=== PATIENT | female | born 1960 | race Caucasian/White ===

== ENCOUNTER → 2016-06-15 07:59 | Outpatient (CLI) | payer BC ==
[2016-06-15 08:47] LABS: BASOPHILS 0.4 % (0.0-2.0); EOSINOPHILS 1.9 % (0-7); HEMOGLOBIN 14.6 g/dL (12-16); IMMATURE GRANULOCYTES 0.3 % (0-5); LYMPHOCYTES 17.6 % (15-50); MCHC 31.1 g/dL (31.0-37.0); MEAN PLATELET VOLUME 9.9 fL (7.4-10.4); MONOCYTES 7.8 % (2-11); PLATELET COUNT 263 10x3/uL (130-400); RBC 5.22 10x6/uL (4.00-5.40); RDW 13.5 % (11.5-14.5); WBC 7.5 10x3/uL (4.8-10.8)
[2016-06-15 08:48] LABS: HEMOGLOBIN A1C 6.6 % (4.8-6.0)
[2016-06-15 08:55] LABS: ALBUMIN 3.7 g/dL (3.4-5.0); BILIRUBIN - TOTAL 0.6 mg/dL (0.2-1.3); CALCIUM 8.7 mg/dL (8.5-10.1); CARBON DIOXIDE 32.7 mmol/L (21.0-32.0); CREATININE - SERUM 0.9 mg/dL (0.6-1.3); POTASSIUM - SERUM 4.7 mmol/L (3.5-5.1); PROTEIN - SERUM 7.3 g/dL (6.4-8.2); THYROID STIMULATING HORMONE 1.88 uIU/mL (0.36-3.74)
== END | disposition home or self-care (01) ==
LOC: D.LAB 07:59
PROVIDERS: Family Medicine
DX: Z00.00 Encounter for general adult medical examination without abnormal findings (principal); E03.9 Hypothyroidism, unspecified; I10 Essential (primary) hypertension; M79.1 Myalgia

== ENCOUNTER → 2016-12-12 19:20 | Outpatient (CLI) | payer BC ==
[2016-12-12 20:01] LABS: HEMOGLOBIN A1C 5.9 % (4.8-6.0)
== END | disposition home or self-care (01) ==
LOC: D.LABREF 19:20
PROVIDERS: Family Medicine
DX: E11.9 Type 2 diabetes mellitus without complications (principal)

== ENCOUNTER → 2017-06-20 07:56 | Outpatient (CLI) | payer MEDICAID ==
[2017-06-20 08:16] LABS: BASOPHILS 0.3 % (0-2); EOSINOPHILS 2.3 % (0-7); HEMATOCRIT 47.4 % (36.0-48.0); HEMOGLOBIN 14.9 g/dL (12-16); IMMATURE GRANULOCYTES 0.2 % (0-5); LYMPHOCYTES 21.7 % (15-50); MCH 28.1 pg (26.0-34.0); MCHC 31.4 g/dL (31.0-37.0); MCV 89.4 fL (80.0-100.0); MEAN PLATELET VOLUME 9.6 fL (7.4-10.4); MONOCYTES 5.9 % (2-11); NEUTROPHILS 69.6 % (40-80); PLATELET COUNT 277 10x3/uL (130-400); RDW 13.2 % (11.5-14.5); WBC 6.2 10x3/uL (4.8-10.8)
[2017-06-20 08:26] LABS: HEMOGLOBIN A1C 5.9 % (4.8-6.0)
[2017-06-20 08:39] LABS: ALBUMIN 3.9 g/dL (3.4-5.0); BILIRUBIN - TOTAL 0.51 mg/dL (0.2-1.3); CALCIUM 9.9 mg/dL (8.5-10.1); CARBON DIOXIDE 32.1 mmol/L (21.0-32.0); CREATININE - SERUM 0.9 mg/dL (0.6-1.3); POTASSIUM - SERUM 4.1 mmol/L (3.5-5.1); PROTEIN - SERUM 7.5 g/dL (6.4-8.2); THYROID STIMULATING HORMONE 2.1 uIU/mL (0.36-3.74)
[2017-06-21 08:16] LABS: VITAMIN D 25 HYDROXY 35.2 ng/mL (30.0-100.0)
== END | disposition home or self-care (01) ==
LOC: D.LAB 07:56
PROVIDERS: Family Medicine
DX: Z00.00 Encounter for general adult medical examination without abnormal findings (principal); E11.9 Type 2 diabetes mellitus without complications; I10 Essential (primary) hypertension; M79.1 Myalgia; E03.9 Hypothyroidism, unspecified

== ENCOUNTER → 2017-11-26 08:20 | Outpatient (CLI) | payer MEDICAID ==
[2017-11-26 09:04] LABS: ANION GAP 5.6 mmol/L (8-16); CALCIUM 9.6 mg/dL (8.5-10.1); CARBON DIOXIDE 34.1 mmol/L (21.0-32.0); CREATININE - SERUM 0.9 mg/dL (0.6-1.3); POTASSIUM - SERUM 4.7 mmol/L (3.5-5.1); THYROID STIMULATING HORMONE 0.94 uIU/mL (0.36-3.74)
== END | disposition home or self-care (01) ==
LOC: D.LAB 08:20
PROVIDERS: Family Medicine
DX: E11.9 Type 2 diabetes mellitus without complications (principal); E03.9 Hypothyroidism, unspecified; I10 Essential (primary) hypertension

== ENCOUNTER 2018-02-25 21:12 | Emergency (ER) | payer MEDICAID ==
[~2018-02-25] VITALS: Ht 175.3 cm; Wt 125.9 kg
[2018-02-25 21:18] VITALS: Ht 175.3 cm; Wt 125.9 kg
[2018-02-25] MEDS ORDERED: TIROSINT13 MCG (21:20)
[2018-02-25] MEDS ORDERED: GLUCOPHAGE500 MG PO (21:21)
[2018-02-25] MEDS ORDERED: ULTRAM50 MG PO (21:21)
[2018-02-25] MEDS ORDERED: CYCLOBENZAPRINE10 MG PO (21:22)
[2018-02-25 22:25] LABS: BASOPHILS 0.2 % (0-2); HEMATOCRIT 45.6 % (36.0-48.0); IMMATURE GRANULOCYTES 0.2 % (0-5); LYMPHOCYTES 10.7 % (15-50); MCH 28.5 pg (26.0-34.0); MCHC 32.9 g/dL (31.0-37.0); MCV 86.5 fL (80.0-100.0); MEAN PLATELET VOLUME 9.9 fL (7.4-10.4); MONOCYTES 5.7 % (2-11); NEUTROPHILS 82.2 % (40-80); PLATELET COUNT 309 10x3/uL (130-400); RBC 5.27 10x6/uL (4.00-5.40); RDW 13.6 % (11.5-14.5); WBC 12.6 10x3/uL (4.8-10.8)
[2018-02-25 22:43] LABS: ALBUMIN 3.9 g/dL (3.4-5.0); ALKALINE PHOSPHATASE 58 U/L (46-116); ALT (SGPT) 24 U/L (10-68); BILIRUBIN - TOTAL 0.35 mg/dL (0.2-1.3); CALC OSMOLALITY 273 mosm/kg (275-300); CALCIUM 8.9 mg/dL (8.5-10.1); CHLORIDE - SERUM 99 mmol/L (98-107); CREATININE - SERUM 0.8 mg/dL (0.6-1.3); GLUCOSE 119 mg/dL (74-106); POTASSIUM - SERUM 3.9 mmol/L (3.5-5.1); PROTEIN - SERUM 7.9 g/dL (6.4-8.2); SODIUM 135 mmol/L (136-145); UREA NITROGEN 22 mg/dL (7-18); eGFR NON AFRICAN AMERICAN 77 mL/min (90-120)
[2018-02-25 23:19] VITALS: BP 128/83
[2018-02-25] MEDS ORDERED: FLAGYL500 MG PO (23:46)
[2018-02-25] MEDS ORDERED: CIPRO500 MG PO (23:46)
== END 2018-02-26 00:09 | disposition home or self-care (01) ==
LOC: D.ER 21:12
PROVIDERS: Family Medicine
DX: K52.9 Noninfective gastroenteritis and colitis, unspecified (principal); R10.30 Lower abdominal pain, unspecified

== ENCOUNTER → 2018-02-28 08:09 | Outpatient (CLI) | payer MEDICAID ==
[2018-02-25 21:18] VITALS: BMI 41.0
[~2018-02-28 08:09] MED LIST: CIPRO500 MG PO; CYCLOBENZAPRINE10 MG PO; FLAGYL500 MG PO; GLUCOPHAGE500 MG PO; TIROSINT13 MCG; ULTRAM50 MG PO
[2018-02-28 08:31] LABS: ANION GAP 10.6 mmol/L (8-16); CALCIUM 9.2 mg/dL (8.5-10.1); CARBON DIOXIDE 29.4 mmol/L (21.0-32.0)
== END | disposition home or self-care (01) ==
LOC: D.LAB 08:09
PROVIDERS: Family Medicine
DX: Z00.00 Encounter for general adult medical examination without abnormal findings (principal); E11.9 Type 2 diabetes mellitus without complications

== ENCOUNTER → 2018-06-19 08:41 | Outpatient (CLI) | payer MEDICAID ==
[2018-02-25 21:18] VITALS: BMI 41.0
[2018-06-19 09:59] LABS: CHOL - HDL RATIO 3.4 ratio (2.3-4.1); LDL-HDL RATIO 1.7 ratio (1.5-3.5); THYROID STIMULATING HORMONE 1.28 uIU/mL (0.36-3.74)
== END | disposition home or self-care (01) ==
LOC: D.LAB 08:41
PROVIDERS: Family Medicine
DX: I10 Essential (primary) hypertension (principal); M79.18 Myalgia, other site; E11.9 Type 2 diabetes mellitus without complications

== ENCOUNTER → 2018-11-22 08:27 | Outpatient (CLI) | payer MEDICAID ==
[2018-02-25 21:18] VITALS: BMI 41.0
== END | disposition home or self-care (01) ==
LOC: D.LAB 08:27
PROVIDERS: ATTEND Family Medicine
DX: E03.9 Hypothyroidism, unspecified (principal); E11.9 Type 2 diabetes mellitus without complications

== ENCOUNTER 2019-04-24 11:14 | Observation (INO) | payer MEDICAID ==
[~2019-04-24] VITALS: Ht 175.3 cm; Wt 116.8 kg
[2019-04-24] MEDS ORDERED: CYMBALTA30 MG PO (11:27)
[2019-04-24 11:43] VITALS: BP 120/50
[2019-04-24 11:54] LABS: BASOPHILS 0.2 % (0-2); EOSINOPHILS 1.6 % (0-7); HEMATOCRIT 50.3 % (36.0-48.0); HEMOGLOBIN 16.1 g/dL (12-16); IMMATURE GRANULOCYTES 0.3 % (0-5); LYMPHOCYTES 17.9 % (15-50); MCH 28.3 pg (26.0-34.0); MCV 88.4 fL (80.0-100.0); MEAN PLATELET VOLUME 9.7 fL (7.4-10.4); MONOCYTES 9.1 % (2-11); NEUTROPHILS 70.9 % (40-80); PLATELET COUNT 348 10x3/uL (130-400); RBC 5.69 10x6/uL (4.00-5.40); RDW 13.3 % (11.5-14.5); WBC 8.7 10x3/uL (4.8-10.8)
[2019-04-24 12:04] LABS: APTT 32.2 SECONDS (22.8-39.4); INR 0.99 (0.85-1.17); PROTIME 12.6 SECONDS (11.6-15.0)
[2019-04-24 12:09] LABS: CALC OSMOLALITY 281 mosm/kg (275-300); CALCIUM 9.9 mg/dL (8.5-10.1); CARBON DIOXIDE 28.3 mmol/L (21.0-32.0); CHLORIDE - SERUM 102 mmol/L (98-107); CREATININE - SERUM 1.2 mg/dL (0.6-1.3); GLUCOSE 132 mg/dL (74-106); POTASSIUM - SERUM 4.3 mmol/L (3.5-5.1); SODIUM 139 mmol/L (136-145); UREA NITROGEN 19 mg/dL (7-18); eGFR NON AFRICAN AMERICAN 48 mL/min (90-120)
[2019-04-24 12:23] LABS: ALBUMIN 3.9 g/dL (3.4-5.0); ALKALINE PHOSPHATASE 62 U/L (46-116); ALT (SGPT) 25 U/L (10-68); BILIRUBIN - TOTAL 0.48 mg/dL (0.2-1.3); CKMB 0.9 U/L (0.0-3.6); CREATINE KINASE 47 UL (21-215); MAGNESIUM - SERUM 1.6 mg/dL (1.8-2.4); PROTEIN - SERUM 8.3 g/dL (6.4-8.2); TROPONIN-I < 0.017 ng/mL (0.000-0.060)
[2019-04-24 12:40] VITALS: BP 98/68
[2019-04-24 13:52] VITALS: BP 96/54
[2019-04-24 14:16] LABS: T4 THYROXINE 13.5 ug/dL (4.7-13.3); THYROID STIMULATING HORMONE 0.22 uIU/mL (0.36-3.74)
[2019-04-24 14:45] VITALS: BP 99/54
--- NOTE | 2019-04-24 16:33 | NUR ---
SPOKE WITH ABOUT PT'S MAGNESIUM LEVEL. HE ADVISED FOR 1 GM MAG SULFATE TO BE INFUSED OVER 4 HRS AFTER ARRIVING TO THE FLOOR.
--- NOTE | 2019-04-24 17:08 | NUR ---
RECIEVED FROM ER. AWAKE AND ALERT. DENIES ANY NEEDS. TELEMERTY SHOWS AFIB 109. FAMILY AT BEDSIDE
[2019-04-24 17:17] VITALS: BP 120/50; Ht 175.3 cm; Wt 116.8 kg
--- NOTE | 2019-04-24 19:54 | NUR ---
RECIEVED STANDING AT SINK AND BRUSHING HER TEETH. ALERT AND ORIENTED X4. UP AD JEFFERY. TELEMETRY IN PLACE. IV TO LEFT AC SL. DENIES ANY NEEDS AT THIS TIME.
[2019-04-24 20:00] VITALS: BP 112/61
[2019-04-25] VITALS: BP 104/69
--- NOTE | 2019-04-25 02:05 | NUR ---
HR WENT UP TO 140-150 WHEN ENTERED THE ROOM SHE WAS AMBULATING AROUND THE ROOM. ASYMPTOMATIC. ASKED HER TO REST AND TAKE IT EASY D/T HIGH PULSE RATE. SHE VERBALLY AGREED.
[2019-04-25 04:00] VITALS: BP 125/65
--- NOTE | 2019-04-25 07:31 | NUR ---
ALERT AND ORIENTED. LEFT AC SL.TELEMERTY SHOWS SR 85. UP AB JEFFERY. SR UP WITH CALL LIGHT IN REACH. WILL MONITOR.
[2019-04-25 08:00] VITALS: BP 113/78
[2019-04-25] MEDS ORDERED: CARDIZEM CD240 MG PO (09:08)
[2019-04-25] MEDS ORDERED: SYNTHROID150 MCG PO (09:09)
--- NOTE | 2019-04-25 11:00 | NUR ---
PT DISCHARGED. IV DCD WITH TIP INTACT. INSTRUCTIONS GIVEN TO PT. TO PRIVATE CAR PER WHEELCHAIR
--- NOTE | 2019-04-29 08:48 | DS ---
PATIENT:TAMIKA MELVIN :56 MEDICAL RECORD: [id number] DISCHARGE SUMMARY ADMISSION DATE: 04/24/19 DISCHARGE DATE: 04/25/19 DATE OF ADMISSION: 04/24/2019 DATE OF DISCHARGE: 04/25/2019 PROBLEM LIST: 1. Atrial fibrillation with rapid ventricular response. 2. Hypothyroidism, now hyperthyroid. 3. Diabetes mellitus. BRIEF HISTORY AND HOSPITAL COURSE: Admitted with atrial fibrillation with RVR, rate was controlled with Cardizem, normal LV function on echo, elevated T4, decreased TSH, thyroid dose was decreased probably, felt not to be go a candidate for cardioversion at this point due to hyperthyroidism, pharmacologic. We will continue rate control, NAYAN score, would not start NOAC at this point. She will be back at the office in 2-3 weeks. Suspect at some point, should be able to taper off the Cardizem, probably benefit given her symptomatology and risk factors from a cardiovascular stress testing at some point. TRANSINT:[id number] Voice Confirmation ID: [id number] DOCUMENT ID: [id number] ARMANDO MOBLEY MD at 0848 CC: [id number] DICTATION DATE: 04/25/19 0855 SHINGLE SAWYER: 04/25/19 0935 DIS IN 04/25/19 [facility] [address] [place] [address]
--- NOTE | 2019-04-29 08:48 | EC ---
PATIENT:TAMIKA MELVIN DATE OF SERVICE: 04/24/19 SEX: F MEDICAL RECORD: [id number] DATE OF : 56 LOCATION:D. D.212 AGE OF PATIENT: 59 ADMISSION DATE: 04/24/19 REFERRING PHYSICIAN: INTERPRETING PHYSICIAN: ARMANDO MOBLEY MD ECHOCARDIOGRAM REPORT ECHO CHARGES 4 ECHO COMPLETE Date: 04/25/19 CLINICAL DIAGNOSIS: A-FLUTTER/TACHYCARDIA ECHOCARDIOGRAPHIC MEASUREMENTS (adult normal given) AC root (d.<3.7cm) 3.3 cm LV Septum d (<1.2 cm> 1.3 cm Valve Excursion 1.4 cm LV Septum (systole) 2.1 cm Left Atria (s.<4.0cm> 3.3 cm LVPW d(<1.2cm) 1.2 cm RV (d.<2.3cm) 1.7 cm LVPW (sytole) 1.8 cm LV diastole(<5.6CM) 4.1 cm MV E-F(>70mm/sec) cm LV systole 2.0 cm LVOT Diameter 1.9 cm MV exc.(>10mm) cm Est.ejection fraction (50-75%) % DOPPLER: LVIT cm/sec A 74.0 cm/sec E 63.0 cm/sec LA cm/sec RVSP 17.0 mmHg LVOT 100 cm/sec AOP1/2T m/s Asc. Ao 129 cm/sec RVOT 61.0 cm/sec RA cm/sec PA 87.0 cm/sec AV Gradient Peak 6.7 mmHg AV Mean 3.7 mmHg AV Area 2.3 cm MV Gradient Peak 3.2 mmHg MV Mean 1.5 mmHg MV Area cm COMMENTS: Charge Account Identification Clerk: 1 JERICHO GUERREROOE Tech Intern: 3 Dr. Carlos TAPE# PACS Pericardial Effusion N DATE OF SERVICE: Adequate 2D, color flow imaging, spectral Doppler, and M-Mode Borderline LVH. LV internal dimension is normal. Wall motion is normal. EF is greater than or equal to 55%. Aortic valve is tricuspid. There is no evidence of stenosis by Doppler interrogation. Left atrium is normal at 3.3 cm. Mitral valve shows no prolapse. Trace MR. Right-sided chambers are grossly normal. Trace TR. ECHOCARDIOGRAM REPORT [id number] TAMIKA MELVIN TRANSINT:[id number] Voice Confirmation ID: [id number] DOCUMENT ID: [id number] ARMANDO MOBLEY MD at 0848 CC: [id number] DICTATION DATE: 04/26/19 1020 CHUCKING MACHINE OPERATOR: 04/26/19 1102 DIS IN 04/25/19 [facility] [address] [place] [id number]
== END 2019-04-25 11:03 | disposition home or self-care (01) ==
LOC: D.ER 11:14 → OBSVTIME 13:53 → D.M2 13:53
PROVIDERS: Emergency Medicine; ADMIT Internal Medicine Interventional Cardiology; ATTEND Internal Medicine Interventional Cardiology
DX: I48.92 Unspecified atrial flutter (principal); I10 Essential (primary) hypertension; F32.9 Major depressive disorder, single episode, unspecified; E11.9 Type 2 diabetes mellitus without complications; I48.91 Unspecified atrial fibrillation; E03.9 Hypothyroidism, unspecified; E05.90 Thyrotoxicosis, unspecified without thyrotoxic crisis or storm

== ENCOUNTER → 2019-06-17 07:58 | Outpatient (CLI) | payer MEDICAID ==
[2019-04-24 17:17] VITALS: BMI 38.0
[~2019-06-17 07:58] MED LIST changes: +CARDIZEM CD240 MG PO; +CYMBALTA30 MG PO; +SYNTHROID150 MCG PO
== END | disposition home or self-care (01) ==
LOC: D.HCCARDIO 07:58
PROVIDERS: ATTEND Internal Medicine Cardiovascular Disease
DX: I20.9 Angina pectoris, unspecified (principal)

== ENCOUNTER 2019-06-26 04:51 | Inpatient (IN) | payer MEDICAID ==
[2019-06-26] VITALS (8 sets, daily range): BP systolic 108–131; BP diastolic 70–82; Ht 175.3 cm; Wt 118.2 kg
[~2019-06-26] VITALS: Ht 175.3 cm; Wt 118.2 kg
--- NOTE | ~2019-06-26 | HEMODYNAMI ---
PATIENT:TAMIKA MELVIN MEDICAL RECORD: [id number] : 56 LOCATION:[facility] D.2118 [facility]# [id number] ADMISSION DATE: 06/26/19 Generatedon:06/26/201913:57 Patient name: TAMIKA MELVIN Patient #: [id number] SSN: [id number] : 1960 Date of study: 06/26/2019 Page: Of Hemodynamic Procedure Report Patient Data Patient Demographics Procedure consent was obtained First Name: TAMIKA Gender: Female Last Name: OLEGARIO : 1960 Middle Initial: LOUIS Age: 59 year(s) Patient #: [id number] Race: SSN: [id number] Additional ID: [id number] Contact details [address]: [address] [place] [address] State: [place] City: [place] Zip code: [address] Past Medical History Allergies Allergen Reaction Date Comments Reported Other allergy 06/26/2019 ERYTHROMYCIN,MORPHINE Admission Admission Data Admission Date: 06/26/2019 Admission Time: 9:12 Arrival Date: 06/26/2019 Arrival Time: 9:12 Admit Source: Other Insurance Payor: Private Room #: D.2118 health insurance [facility] #: [id number] Height (in.): 68.9 BSA: 2.31 (m2) Height (cm.): 175 BMI: 38.53 (kg/m2) Weight (lbs.): 260.15 Weight (kg.): 118 Lab Results Lab Result Date: 06/26/2019 Lab Result Time: 0:00 Biochemistry Name Units Result Min Max BUN mg/dl 21 --(----)-* 7 18 Creatinine mg/dl 1 --(--*-)-- 0.6 1.3 eGFR ml/min 60 *-(----)-- 90 120 NONAFRICAN CBC Name Units Result Min Max Hemoglobin g/dl 15.4 --(-*--)-- 13.5 17.5 Procedure Procedure Types Cath Procedure Diagnostic Procedure [facility] w/Coronaries Sedation Charges Moderate Sedation up to 15 minutes Procedure Description Procedure Date Procedure Date: 06/26/2019 Procedure Start Time: 13:43 Procedure End Time: 13:56 Procedure Staff Name Function Rod Ma MD Performing Physician Guillermina Moya RT Monitor Rosi Cortes RT Scrub Desire Alicea RN Nurse Indication Angina Procedure Data Cath Procedure Fluoroscopy Diagnostic fluoroscopy Total fluoroscopy Time: 2.9 time: 2.9 min min Diagnostic fluoroscopy Total fluoroscopy dose: 819 dose: 819 mGy mGy Contrast Material Contrast Material Type Amount (ml) Isovue 300 53 Entry Location Entry Primary Successful Side Size Upsize Upsize Entry Closure Aparicio ccessful Closure Location (Fr) 1 (Fr) 2 (Fr) Remarks Device Remarks Radial Right 6 Fr Mechanical artery Short Compression Estimated blood loss: 10 ml Diagnostic catheters Device Type Used For End Catheter Placement DIAGNOSTIC Pilot Point 110cm 5 Procedure Fr catheter ([id number]) DIAGNOSTIC Pigtail 5Fr Ventriculography catheter ([id number]) Procedure Complications No complications Procedure Medications Medication Administration Route Dosage 0.9% NaCl I.V. 100 ml/hr Oxygen etCO2 Nasal cannula 2 l/min Lidocaine 2% added to field 20 Heparin Flush Bag added to field 2 bags (1000units/500ml NS) Radial Cocktail added to field 1 syringe (Verapamil 2mg/Nitro 400mcg/Heparin 1500units) Versed I.V. 2 mg Fentanyl I.V. 50 mcg Versed I.V. 2 mg Fentanyl I.V. 50 mcg Hemodynamics Rest BSA: 2.31 (m2) HGB: 15.4 (g/dl) O2 Consumption: Estimated: 230.96 (ml/min) O2 Co nsumption indexed: Estimated:99.98 (ml/min/m) Heart Rate: 84 (bpm) Pressure Samples Time Site Value (mmHg) Purpose Heart Use Rate(bpm) 13:50 LV 94/18,17 Snapshot 70 Gradients Valve Time Site Site Mean SEP/DFP Peak To Heart Use 1 2 (mmHg) (sec/min) Peak Rate (mmHg) (bpm) Aortic 13:51 LV AO 85 Snapshots Pre Cath Intra NCS Post Cath Vital Signs Time Heart Resp SPO2 etCO2 NIBP (mmHg) Rhythm Pain Sedation Rate (ipm) (%) (mmHg) Status Level (bpm) 13:31:22 84 20 98 34.3 119/84(107) A-Flutter 0 (11) 10(A) , No pain 13:36:05 99 18 98 36.6 136/93(116) A-Flutter 0 (11) 10(A) , No pain 13:40:11 78 18 97 37.3 133/83(98) A-Flutter 0 (11) 10(A) , No pain 13:44:19 78 13 97 16 122/76(113) A-Flutter 0 (11) 10(A) , No pain 13:48:24 82 12 97 14.9 120/70(88) A-Flutter 0 (11) 9(A) , No pain 13:52:30 83 13 98 20.2 112/66(79) A-Flutter 0 (11) 10(A) , No pain Medications Time Medication Route Dose Verified Delivered Reason Notes E ffectiveness by by 13:33:00 0.9% NaCl I.V. 100 Rod Desire used for ml/hr Anil Nixon procedure MD TORRES 13:33:06 Oxygen etCO2 2 l/min Rod Desire used for Nasal Anil Nixon procedure cannula MD TORRES 13:33:11 Lidocaine 2% added 20ml Rod Rod for local to vial Anil Anil anesthetic field MD [place] 13:33:15 Heparin Flush added 2 bags Rod Rod used for Bag to Anil Anil procedure (1000units/500ml field MD [place] NS) 13:33:20 Radial Cocktail added 1 Rod Rod used for (Verapamil to syringe Anil Anil procedure 2mg/Nitro field MD [place] 400mcg/Heparin 1500units) 13:38:18 Versed I.V. 2 mg Rod Desire for Anil Nixon sedation MD TORRES 13:38:33 Fentanyl I.V. 50 mcg Rod Desire for Anil Nixon sedation MD T[facility]RES 13:44:43 Versed I.V. 2 mg Rod Desire for Anil Nixon sedation MD T[facility]RES 13:44:52 Fentanyl I.V. 50 mcg Rod Desire for Anil Nixon sedation MD TORREStoilet products molder Log Time Note 13:13:06 Informed consent obtained and on chart 13:14:08 Desire Alicea RN sent for patient. Start room use. 13:17:19 Admit Source: Other 13:17:27 Arrival Date: 06/26/2019 9:12:00 AM 13:17:53 Insurance Payor : Private health insurance 13:18:04 Patient Height : 68.9 inches 13:18:07 Patient Weight : 260.15 lbs 13:18:53 Lab Result : Hemoglobin 15.4 g/dl 13:18:53 Lab Result : Creatinine 1 mg/dl 13:18:53 Lab Result : BUN 21 mg/dl 13:18:53 Lab Result : eGFR NONAFRICAN 60 ml/min 13:22:50 Diagnostic Cath Status : Urgent 13:24:04 Indication : Angina 13:24:15 Time tracking: Regular hours (M-F 7:00 - 5:00) 13:24:19 Plan of Care:Hemodynamics will remain stable., Cardiac rhythm will remain stable., Comfort level will be maintained., Respiratory function will remain adequate., Patient/ family verbilizes understanding of procedure., Procedure tolerated without complication., Recovers from procedure without complications.. 13:24:24 Patient received from Med II to CCL 2 Alert and oriented. Tansferred to table in Supine position. 13:24:24 Warm blankets applied, and jorge hugger turned on for patient comfort. 13:24:25 Correct patient and procedure confirmed by team. 13:24:25 ECG and BP/O2 sat monitors applied to patient. 13:30:19 Vital chart was started 13:30:21 Baseline sample Acquired. 13:30:37 H&P Date Dictated: 06/26/2019 Within 30 days and on chart.. 13:30:39 Pre-procedure instructions explained to patient. 13:30:39 Pre-op teaching completed and patient verbalized understanding. 13:30:42 Family in patients room. 13:30:46 Patient NPO since Lunch. 13:31:04 Patient allergic to Other allergyERYTHROMYCIN,MORPHINE 13:31:06 Is the patient allergic to Iodine/contrast media? No. 13:31:08 Was the patient premedicated? No 13:31:10 Is patient on blood thinner?No 13:31:44 Patient diabetic? Yes. 13:32:01 If diabetic: On Metformin? Yes 13:32:04 If on Metformin: Last Dose? 06/26/2019 13:32:08 ----Pre-sedation anethsthesia assessment.---- 13:32:12 Previous problem with sedation/anesthesia? No ? 13:32:13 Snore? Yes 13:32:14 Sleep apnea? No 13:32:15 Deviated septum? No 13:32:17 Opens mouth fully? Yes 13:32:18 Sticks out tongue? Yes 13:32:20 Airway obstruction? No ? 13:32:23 Dentures? No ? 13:32:47 Lab results completed and on chart. 13:32:53 Stress Test: no; N/A ? 13:33:00 0.9% NaCl 100 ml/hr I.V. was administered by Desire Alicea RN; used for procedure; Verbal order read back and verified. 13:33:06 Oxygen 2 l/min etCO2 Nasal cannula was administered by Desire Alicea RN; used for procedure; Verbal order read back and verified. 13:33:11 Lidocaine 2% 20ml vial added to field was administered by Rod Ma MD; for local anesthetic; Verbal order read back and verified. 13:33:15 Heparin Flush Bag (1000units/500ml NS) 2 bags added to field was administered by Rod Ma MD; used for procedure; Verbal order read back and verified. 13:33:20 Radial Cocktail (Verapamil 2mg/Nitro 400mcg/Heparin 1500units) 1 syringe added to field was administered by Rod Ma MD; used for procedure; Verbal order read back and verified. 13:35:16 Risk of Mortality: .2 13:35:18 Risk of blood transfusion: .1 13:35:20 Risk of SARAH: .2 13:35:25 Right Radial & Right Groin area was prepped with chlora-prep and draped in sterile fashion 13:35:26 Alarms reviewed by R. N. 13:35:27 Sharps counted by scrub and verified by R.N. 13:35:34 Full Disclosure recording started 13:35:39 Procedure Status Urgent Heart Cath (IP). 13:35:46 Use device set Radial Dx or PCI 13:35:47 ACIST Syringe (91076) opened to sterile field. 13:35:48 Medline Cath Pack ([id number]) opened to sterile field. 13:35:49 Bag Decanter (2002) opened to sterile field. 13:35:49 ACIST Hand Control (98879) opened to sterile field. 13:35:50 ACIST Manifold (00164) opened to sterile field. 13:35:54 EMERALD Guide Wire (865-241) opened to sterile field. 13:35:56 SHEATH 6FR RAIN (8127183) opened to sterile field. 13:36:23 Pre procedure: right dorsailis pedis pulse 2+ Normal; easily identifiable; not easily obliterated 13:36:25 Modified Johnathan's test Ulnar < 7 seconds 13:36:28 Patient pain scale 0/10 ?. 13:36:37 IV patent on arrival in left forearm with 0.9% NaCl at KVO. 13:36:55 Baseline sample Acquired. 13:37:04 Rhythm: atrial flutter 13:37:48 --------ALL STOP TIME OUT------ 13:37:49 Maximum allowable contrast dose (3.7 X eGFR X 0.75)166 ml. 13:37:53 2) 60-89 Mildly reduced kidney function, and other findings (as for stage 1) point to kidney disease. 13:38:18 Versed 2 mg I.V. was administered by Desire Alicea RN; for sedation; Verbal order read back and verified. 13:38:33 Fentanyl 50 mcg I.V. was administered by Desire Alicea RN; for sedation; Verbal order read back and verified. 13:42:54 Final Timeout: patient, procedure, and site verified with staff and physician. All members of the team are in agreement. 13:42:56 Right Radial & Right Groin site verified by team. 13:42:59 Fire Safety Assessment: A--An alcohol-based skin anteseptic being used preoperatively., C--Open oxygen or nitrous oxide is being used., D--An ESU, laser, or fiber-optic light is being used. 13:43:03 Physical assessment completed. ASA score P 2 - A patient with mild systemic disease as per Rod Ma MD. 13:43:07 Sedation plan: IV Moderate Sedation Medication:Versed, Fentanyl 13:43:12 Procedure started. 13:43:22 Local anesthetic to right radial artery with Lidocaine 2% by Rod Ma MD.INITIAL ACCESS ONLY 13:44:01 A 6 Fr Short sheath was inserted into the Right Radial artery 13:44:43 Versed 2 mg I.V. was administered by Desire Alicea RN; for sedation; Verbal order read back and verified. 13:44:52 Fentanyl 50 mcg I.V. was administered by Desire Alicea RN; for sedation; Verbal order read back and verified. 13:45:31 A DIAGNOSTIC Pilot Point 110cm 5 Fr catheter (975777) was advanced over the wire and used for Procedure. 13:47:18 RCA angiography performed. 13:47:33 LCA angiography performed. 13:48:42 Catheter removed. 13:49:00 A DIAGNOSTIC Pigtail 5Fr catheter ([id number]) was advanced over the wire and used for Ventriculography. 13:49:07 MBrace Wrist Support ([id number]) opened to sterile field. 13:49:23 LV gram done using AMBROSIO 13:49:24 LV hemodynamics recorded. 13:51:24 EF : 55 % 13:51:31 Catheter removed. 13:52:35 Sheath removed intact; hemostasis achieved with Mechanical Compression to the Right Radial artery. 13:52:38 Procedure ended.(Physican Out) 13:52:55 Fluoroscopy time 02.90 minutes. 13:53:01 Fluoroscopy dose: 819 mGy 13:53:01 Flurop Dose total: 819 13:53:07 Dose Area Product 75943 mGy/cm. 13:53:11 Contrast amount:Isovue 300 53ml. 13:53:18 Maximum allowable dose exceeded? No. 13:53:20 Sharps counted by scrub and verified by R.N. 13:53:26 Colcord band inflated with 10cc of air. 13:53:31 ZEPHYR LARGE TR BAND (438937) opened to sterile field. 13:53:36 Insertion/operative site no bleeding no hematoma. 13:53:42 Post Procedure Pulses reassessed and unchanged 13:53:56 Post-procedure physical assessment completed. ASA score P 3 - A patient with severe systemic disease as per Rod Ma MD. 13:54:02 Post procedure rhythm: unchanged. 13:54:07 Estimated blood loss: 10 ml 13:54:34 Post procedure instruction explained to patient.Patient verbalizes understanding. 13:55:13 Procedure type changed to Cath procedure, Diagnostic procedure, LHC, LHC w/Coronaries, Sedation Charges, Moderate Sedation up to 15 minutes 13:55:15 Procedure and supply charges have been captured, reviewed, submitted and are correct. 13:55:43 Procedure Complication : No complications 13:55:49 Vital chart was stopped 13:55:53 [facility] Findings: mild to moderate CAD (<70%) 13:55:55 Operative report dictated upon procedure completion. 13:55:56 See physician's report for complete and final results. 13:55:56 See physician's report for complete and final results. 13:55:58 Report given to Pre/Post Procedure Room. 13:56:03 Patient transfered to Pre/Post Procedure Room with Stretcher. 13:56:05 Procedure ended. 13:56:05 Full Disclosure recording stopped 13:56:11 End room use (Document Last) 13:56:39 End room use (Document Last) 13:57:22 End room use (Document Last) Device Usage Item Name Manufacture Quantity Catalog Hospital Part Current Minima l Lot# / Number Charge Number Stock Stock Serial# Code ACIST Acist 1 66242 311514 260988 639171 20 Syringe Medical (52662) Systems Inc Medline Medline 1 [id number] 493208 02176 867020 5 Cath Pack (NDOC09292) Bag Microtek 1 2001S 659229 06608 614643 5 Decanter Medical Inc. () ACIST Hand Acist 1 28721 602194 554053 857075 5 Control Medical (80371) Systems Inc ACIST Acist 1 88738 975980 485922 581763 5 Manifold Medical (90397) Systems Inc EMERALD Cardinal 1 502-455 530714 850163 303067 5 Guide Wire Health (502-455) SHEATH 6FR Cardinal 1 5453657 641090 9551171 808152 5 [facility] (9674987) DIAGNOSTIC Terumo 1 40-5013 306958 112431 315088 5 Pilot Point 110cm 5 Fr catheter (414913) DIAGNOSTIC Cardinal 1 [id number] 321202 052205 926288 5 Pigtail 5Fr Health catheter (445071Y) MBrace Advanced 1 140-0250-00 990365 83095 790856 5 Wrist Vascular Support Dynamics (243818778) ZEPHYR Cardinal 1 788912 470084 8253340 885689 5 LARGE TR Health BAND (846007) Signature Audit [place] Stage Time Signature Unsigned Intra-Procedure 06/26/2019 Guillermina Moya 1:56:39 PM RT(R) Intra-Procedure 06/26/2019 Desire Alicea 1:57:22 PM RN Intra-Procedure 06/26/2019 Rod Owusu 1:57:57 PM Spencer [place] Signatures Performing Physician : Signature : Rod Ma MD Date : Time : Monitor : Guillermina Moya Signature : RT Date : Time : Nurse : Desire Alicea RN Signature : Date : Time : [place] [address] [place] [address]
[2019-06-26 05:28] LABS: CALC OSMOLALITY 284 mosm/kg (275-300); CALCIUM 9.2 mg/dL (8.5-10.1); CARBON DIOXIDE 31.8 mmol/L (21.0-32.0); CHLORIDE - SERUM 101 mmol/L (98-107); GLUCOSE 162 mg/dL (74-106); POTASSIUM - SERUM 3.9 mmol/L (3.5-5.1); SODIUM 139 mmol/L (136-145); UREA NITROGEN 21 mg/dL (7-18); eGFR NON AFRICAN AMERICAN 60 mL/min (90-120)
[2019-06-26 05:34] LABS: BASOPHILS 0.4 % (0-2); EOSINOPHILS 1.9 % (0-7); HEMATOCRIT 47.7 % (36.0-48.0); HEMOGLOBIN 15.4 g/dL (12-16); IMMATURE GRANULOCYTES 0.3 % (0-5); LYMPHOCYTES 19.1 % (15-50); MCH 28.5 pg (26.0-34.0); MCHC 32.3 g/dL (31.0-37.0); MCV 88.3 fL (80.0-100.0); MEAN PLATELET VOLUME 9.6 fL (7.4-10.4); MONOCYTES 8.2 % (2-11); NEUTROPHILS 70.1 % (40-80); PLATELET COUNT 307 10x3/uL (130-400); RDW 13.6 % (11.5-14.5); WBC 7.9 10x3/uL (4.8-10.8)
--- NOTE | 2019-06-26 05:40 | NUR ---
URINE SENT TO LAB AT THIS TIME.
[2019-06-26 05:46] LABS: ALBUMIN 3.8 g/dL (3.4-5.0); ALKALINE PHOSPHATASE 64 U/L (46-116); ALT (SGPT) 21 U/L (10-68); BILIRUBIN - TOTAL 0.25 mg/dL (0.2-1.3); CKMB 0.7 U/L (0.0-3.6); CREATINE KINASE 39 UL (21-215); PRO BNP 98 pg/mL (0-125); PROTEIN - SERUM 7.9 g/dL (6.4-8.2); T4 THYROXIN - FREE 1.14 ng/dL (0.76-1.46); T4 THYROXINE 10.2 ug/dL (4.7-13.3)
[2019-06-26 05:51] LABS: TROPONIN-I < 0.017 ng/mL (0.000-0.060)
[2019-06-26 06:02] LABS: APPEARANCE CLEAR (CLEAR); BACTERIA FEW /hpf (NEGATIVE); BILIRUBIN NEGATIVE (NEGATIVE); COLOR YELLOW (YELLOW); EPITHELIAL CELLS 0-5 /hpf (0-5); GLUCOSE NEGATIVE (NEGATIVE); KETONE MODERATE mg/dL (NEGATIVE); NITRITE NEGATIVE (NEGATIVE); PROTEIN NEGATIVE (NEGATIVE); RED CELLS - URINE 0-5 /hpf (0-5); UROBILINOGEN NORMAL (NORMAL); WHITE CELLS - URINE 0-5 /hpf (NEGATIVE)
[2019-06-26] MEDS ORDERED: XARELTO20 MG PO (06:58)
[2019-06-26] MEDS ORDERED: CARTIA XT240 MG PO (06:58)
--- NOTE | 2019-06-26 07:58 | NUR ---
ASSISTED PT TO RESTROOM AND BACK TO BED. NO FURTHER NEEDS AT THIS TIME.
[2019-06-26 08:39] LABS: CKMB 0.6 U/L (0.0-3.6); CREATINE KINASE 29 UL (21-215); TROPONIN-I < 0.017 ng/mL (0.000-0.060)
--- NOTE | 2019-06-26 08:45 | NUR ---
PT HR BACK UP TO 148-152, A FLUTTER ON MONITOR. ERIKAPCELINA INFORMED AND AT BEDSIDE.
[2019-06-26 10:05] LABS: CHOL - HDL RATIO 3.8 ratio (2.3-4.1); LDL-HDL RATIO 2.2 ratio (1.5-3.5)
--- NOTE | 2019-06-26 13:35 | NUR ---
PRE-OPS GIVEN. TO MANAGER HOSPICE BY BED.
[2019-06-26 14:31] LABS: BASOPHILS 0.2 % (0-2); EOSINOPHILS 1.9 % (0-7); HEMATOCRIT 44.5 % (36.0-48.0); HEMOGLOBIN 14.2 g/dL (12-16); IMMATURE GRANULOCYTES 0.2 % (0-5); LYMPHOCYTES 16.8 % (15-50); MCH 28.1 pg (26.0-34.0); MCHC 31.9 g/dL (31.0-37.0); MCV 88.1 fL (80.0-100.0); MEAN PLATELET VOLUME 9.3 fL (7.4-10.4); MONOCYTES 9.7 % (2-11); NEUTROPHILS 71.2 % (40-80); PLATELET COUNT 307 10x3/uL (130-400); RBC 5.05 10x6/uL (4.00-5.40); RDW 13.6 % (11.5-14.5); WBC 8.3 10x3/uL (4.8-10.8)
--- NOTE | 2019-06-26 14:46 | NUR ---
BACK FROM IRON CARRIER. VS WNL. RIGHT WRIST STABLE WITH Z-BAND INTACT. [employer] MONITOR.
[2019-06-26 14:54] LABS: ALT (SGPT) 19 U/L (10-68); CALCIUM 8.6 mg/dL (8.5-10.1); CARBON DIOXIDE 27.6 mmol/L (21.0-32.0); CHLORIDE - SERUM 104 mmol/L (98-107); CHOL - HDL RATIO 3.9 ratio (2.3-4.1); CHOLESTEROL, TOTAL 204 mg/dL (0-200); CREATININE - SERUM 0.8 mg/dL (0.6-1.3); HDL CHOLESTEROL 52 mg/dL (32-96); LDL CHOLESTEROL 113 mg/dL (0-100); LDL-HDL RATIO 2.2 ratio (1.5-3.5); SODIUM 140 mmol/L (136-145); TRIGLYCERIDE 198 mg/dL (30-200); UREA NITROGEN 18 mg/dL (7-18); eGFR NON AFRICAN AMERICAN 77 mL/min (90-120)
[2019-06-26 14:55] LABS: CALC OSMOLALITY 280 mosm/kg (275-300); GLUCOSE 104 mg/dL (74-106); POTASSIUM - SERUM 4.5 mmol/L (3.5-5.1)
[2019-06-26 15:27] LABS: CKMB 0.7 U/L (0.0-3.6); CREATINE KINASE 29 UL (21-215)
--- NOTE | 2019-06-26 15:29 | NUR ---
CONVERTED TO NSR. HR 60.
[2019-06-26 15:31] LABS: TROPONIN-I < 0.017 ng/mL (0.000-0.060)
--- NOTE | 2019-06-26 19:30 | NUR ---
PATIENT IS ALERT AND ORIENTED, SITTING UP IN RECLINER. RESPIRATIONS ARE EVEN AND UNLABORED. NO S/S OF DISTRESS. NO C/O PAIN. CALL LIGHT WITHIN REACH. WILL CPOC.
[2019-06-27 00:30] VITALS: BP 98/57
--- NOTE | 2019-06-27 02:14 | NUR ---
PATIENT RESTING COMFORTABLY IN BED. RESPIRATIONS ARE EVEN AND UNLABORED. NO S/S OF DISTRESS. NO C/OPAIN. CALL LIGHT WITHIN REACH. WILL CPOC.
[2019-06-27 04:30] VITALS: BP 124/77
[2019-06-27 12:01] VITALS: BP 117/83
[2019-06-27] MEDS ORDERED: XARELTO20 MG PO (12:12)
[2019-06-27] MEDS ORDERED: BETAPACE 80 MG80 MG PO (12:12)
--- NOTE | 2019-06-27 12:51 | NUR ---
EUGENIA CALLED TO [facility]IO PER MD ORDERS. TALKED TO OLEKSANDR-PHARMACIST.
--- NOTE | 2019-06-27 13:27 | NUR ---
IV AND TELEMETRY DCD. DC PLANS GIVEN. ESCORTED TO CAR BY HOURLY SALES STAFF. WILL CONT. PLAN OF CARE.
--- NOTE | 2019-06-27 17:29 | MORECARE ---
CASE MANAGEMENT DISCHARGE SUMMARY PATIENT: TAMIKA MELVIN UNIT: [id number] ADM DATE: 06/26/19 AGE: 59 : 56 SEX: F ROOM/BED: D.0126 AUTHOR: DARIA,DOC PHYSICIAN: REFERRING PHYSICIAN: MARIEL LAI MD DATE OF SERVICE: 06/27/19 Discharge Plan Patient Name: TAMIKA MELVIN Facility: [facility]:[place] : 1960 Planned Disposition: Home Anticipated Discharge Date: 06/27/19 Discharge Date: 06/27/2019 Expected LOS: 1 Initial Reviewer: [email or web address] Initial Review Date: 06/27/2019 Generated: 06/27/19 6:29 pm Comments DCP- Discharge Planning Updated by [email or web address]: James Clemens on 06/27/19 4:[address] Patient Name: TAMIKA MELVIN Admission Status: ER Accout number: [id number] Admission Date: 06-26-2019 : 1960 Admission Diagnosis: Attending: MARIEL LAI Current LOS: 1 Anticipated DC Date: 06-27-2019 Planned Disposition: Home Primary Insurance: [place] [employer] [place]IV[place] Discharge Planning Comments: CM MET WITH PT AND SPOUSE IN ROOM TO DISCUSS DISCHARGE PLANNING AND NEEDS. TAMIKA MELVIN provided verbal consent to discuss current and ongoing needs with/in the presence of: SPOUSE, NIRMAL. PT REPORTS LIVING AT HOME INDEPENDENTLY WITH HER SPOUSE. PT HAS NO MEDICAL EQUIPMENT AND NO OUTSIDE SERVICES ASSISTING IN THE HOME. CM DISCUSSED AVAILABILITY OF HOME HEALTH, REHAB SERVICES AND MEDICAL EQUIPMENT. PT DENIES DISCHARGE NEEDS, REPORTS HER SPOUSE WILL PICK HER UP FOR DISCHARGE HOME TODAY. DIRECTOR OF INTELLIGENCE NURSE NOTIFIED. Leather Crafter: James Clemens DCPIA - Discharge Planning Initial Assessment Updated by [email or web address]: James Clemens on 06/27/19 5:24 pm * Is the patient Alert and Oriented? Yes * How many steps to enter\exit or inside your home? * PCP DR. DESHPANDE * Pharmacy [facility] [address] * Preadmission Environment Home with Family * ADLs Independent * Equipment None * Other Equipment NO MEDICAL EQUIPMENT PROVIDER PREFERENCE * List name and contact numbers for known caregivers / representatives who currently or will assist patient after discharge: NIRMAL ALANNA, SPOUSE, * Verbal permission to speak to the caregivers and representatives has been obtained from the patient. N/A * Community resources currently utilized None * Please name any agencies selected above. NONE * Additional services required to return to the preadmission environment? No * Can the patient safely return to the preadmission environment? Yes * Has this patient been hospitalized within the prior 30 days at any hospital? Yes Patient Name: TAMIKA MELVIN Page [id number] at 1729 All edits/amendments must be made on the electronic document DICTATION DATE: 06/27/191728 WELT INSOLE CHANNELER: MANUEL 06/27/191728 RPT#: [id number] DC DATE:06/27/19 STATUS: DIS IN [facility] [address] [place] [address] END OF REPORT
[2019-07-06] MEDS ORDERED: CYMBALTA60 MG PO (02:56)
--- NOTE | 2019-07-07 13:00 | OP ---
PATIENT NAME: TAMIKA MELVIN MEDICAL RECORD: [id number] :56 LOCATION:D.M2 D.2118 ADMISSION DATE:06/26/19 SURGEON: ARMANDO MOBLEY MD DATE OF OPERATION: 06/26/2019 PROCEDURE: Left heart catheterization, selective coronary angiography, right radial approach. CATHETERS: Radial sheath, Tipton catheter. The procedure was well tolerated. The patient was returned to [place]. Sheath was removed. TR band was placement. FINDINGS: Left ventriculography in 30-degree AMBROSIO view: Normal wall motion and normal systolic function. CORONARY ANATOMY: LEFT MAIN: Left main is free of disease. LAD: Free of disease in the diagonal system. CIRCUMFLEX: Free of disease in a marginal system. RIGHT CORONARY ARTERY: Dominant artery, gives rise to PDA, free of disease. IMPRESSION: Normal LV function. Normal coronary anatomy. Continued atrial flutter. We will add NOAC. Continue Cardizem for rate control. Hopefully, this becomes more euthyroid. We will spontaneously cardiovert, although we will consider cardioversion if flutter continues. TRANSINT:[id number] Voice Confirmation ID: [id number] DOCUMENT ID: [id number] ARMANDO MOBLEY MD at 1300 CC: [id number] DICTATION DATE: 06/26/19 140 BUILDING RENTAL SUPERINTENDENT: 06/26/19 1854 DIS IN 06/27/19 [facility] [address] [facility] [place] [address]
== END 2019-06-27 13:28 | disposition home or self-care (01) | DRG 287 ==
LOC: D.ER 04:51 → D.M2 09:12 → OBSVTIME 09:52 → D.M2 19:17
PROVIDERS: Emergency Medicine; Family Medicine; Internal Medicine Interventional Cardiology; ADMIT Family Medicine; ATTEND Family Medicine
PROC: B2151ZZ Fluoroscopy of Left Heart using Low Osmolar Contrast (ICD-10-PCS; 2019-06-26)
PROC: 4A023N7 Measurement of Cardiac Sampling and Pressure, Left Heart, Percutaneous Approach (ICD-10-PCS; 2019-06-26)
PROC: B2111ZZ Fluoroscopy of Multiple Coronary Arteries using Low Osmolar Contrast (ICD-10-PCS; principal; 2019-06-26 13:00)
DX: I48.91 Unspecified atrial fibrillation (principal); E03.8 Other specified hypothyroidism; E06.3 Autoimmune thyroiditis; E11.9 Type 2 diabetes mellitus without complications; M79.7 Fibromyalgia; Z68.38 Body mass index [BMI] 38.0-38.9, adult; E66.01 Morbid (severe) obesity due to excess calories; F34.1 Dysthymic disorder; G89.29 Other chronic pain; M54.2 Cervicalgia; E78.2 Mixed hyperlipidemia; I48.92 Unspecified atrial flutter

== ENCOUNTER → 2019-10-22 13:50 | Outpatient (CLI) | payer MEDICAID ==
[2019-07-06 02:54] VITALS: BMI 38.5
[~2019-10-22 13:50] MED LIST changes: +BETAPACE 80 MG80 MG PO; +CARTIA XT240 MG PO; +CYMBALTA60 MG PO; +XARELTO20 MG PO
[2019-10-22 14:40] LABS: T4 THYROXIN - FREE 1.45 ng/dL (0.76-1.46); THYROID STIMULATING HORMONE 1.1 uIU/mL (0.36-3.74)
== END | disposition home or self-care (01) ==
LOC: D.LAB 13:50
PROVIDERS: ATTEND Family Medicine
DX: E11.9 Type 2 diabetes mellitus without complications (principal); E03.9 Hypothyroidism, unspecified

== ENCOUNTER → 2020-01-16 09:53 | Outpatient (CLI) | payer MEDICAID ==
[2019-07-06 02:54] VITALS: BMI 38.5
[2020-01-16 10:43] LABS: T4 THYROXINE 10.3 ug/dL (4.7-13.3); THYROID STIMULATING HORMONE 2.43 uIU/mL (0.36-3.74)
[2020-01-16 11:10] LABS: BILIRUBIN NEGATIVE (NEGATIVE); GLUCOSE NEGATIVE (NEGATIVE); KETONE NEGATIVE (NEGATIVE); NITRITE NEGATIVE (NEGATIVE); UROBILINOGEN NORMAL (NORMAL)
== END | disposition home or self-care (01) ==
LOC: D.LAB 09:53
PROVIDERS: ATTEND Family Medicine
DX: E03.9 Hypothyroidism, unspecified (principal); E11.9 Type 2 diabetes mellitus without complications; I48.0 Paroxysmal atrial fibrillation; R82.90 Unspecified abnormal findings in urine

== ENCOUNTER → 2020-09-07 11:07 | Outpatient (CLI) | payer MEDICAID ==
[2019-07-06 02:54] VITALS: BMI 38.5
== END | disposition home or self-care (01) ==
LOC: D.LAB 11:07
PROVIDERS: ATTEND Family Medicine
DX: E55.9 Vitamin D deficiency, unspecified (principal)

== ENCOUNTER → 2020-10-28 09:24 | Outpatient (CLI) | payer MEDICAID ==
[2019-07-06 02:54] VITALS: BMI 38.5
[2020-10-28 10:23] LABS: T4 THYROXIN - FREE 1.36 ng/dL (0.76-1.46); THYROID STIMULATING HORMONE 0.61 uIU/mL (0.36-3.74)
== END | disposition home or self-care (01) ==
LOC: D.LAB 09:24
PROVIDERS: ATTEND Family Medicine
DX: E11.9 Type 2 diabetes mellitus without complications (principal); E03.9 Hypothyroidism, unspecified